=== PATIENT | male | born 1995 | race African-American/Black ===

== ENCOUNTER 2017-06-23 11:28 | Emergency (ER) | payer MEDICAID ==
[2017-06-23 11:42] VITALS: BP 101/56
[2017-06-23] MEDS ORDERED: IBUPROFEN 800 MG TABLET PO ONE (12:59)
--- NOTE | 2017-06-23 13:04 | RADIOLOGY REPORT (SQ) ---
EXAM DESCRIPTION: ANKLE RIGHT COMPLETE COMPLETED DATE/TIME: 06/23/2017 12:55 pm REASON FOR STUDY: pain and injury COMPARISON: None. NUMBER OF VIEWS: Three views. TECHNIQUE: AP, lateral, and oblique radiographic images acquired of the right ankle. LIMITATIONS: None. FINDINGS: MINERALIZATION: Normal. BONES: No acute fracture or dislocation. No worrisome bone lesions. JOINTS: No effusions. SOFT TISSUES: No soft tissue swelling. No foreign body. OTHER: No other significant finding. IMPRESSION: NEGATIVE STUDY OF THE RIGHT ANKLE. NO RADIOGRAPHIC EVIDENCE OF ACUTE INJURY. TECHNICAL DOCUMENTATION: JOB ID: [id number] [employer]- All Rights Reserved Reading location - IP/workstation name: [email or web address]
--- NOTE | 2017-06-23 13:05 | ER Document Report ---
ED Extremity Problem, Lower - General Chief Complaint: Ankle Injury Stated Complaint: ANKLE PAIN Time Seen by Provider: 06/23/17 12:34 Mode of Arrival: Ambulatory Information source: Patient Notes: 21-year-old male presents to ED for complaint of pain to his right ankle. He states he was playing basketball yesterday and came down wrong on his ankle causing him to fall. There is slight swelling to the lateral aspect of the right ankle. He has full range of motion to the ankle. TRAVEL OUTSIDE OF THE [place] IN LAST 30 DAYS: No - HPI Patient complains to provider of: Injury, Pain, Swelling Location: Ankle - Right Occurred: Yesterday Where: Outdoors, Sports Onset/Duration: Gradual Quality of pain: Achy, Sharp Severity: Moderate Pain Level: 3 Context: Fell, Twisted, Wearing shoes Recent injury: Possibly Associated symptoms: Painful ambulation Exacerbated by: Hanging down, Movement, Walking Relieved by: Nothing - Related Data Allergies/Adverse Reactions: No Known Allergies Allergy (Verified 06/23/17 11:32) Past Medical History - General Information source: Patient - Social History Smoking Status: Never Smoker Cigarette use (# per day): No Chew tobacco use (# tins/day): No Smoking Education Provided: No Frequency of alcohol use: None Drug Abuse: None Lives with: Family Family History: Reviewed & Not Pertinent. denies: Arthritis, CAD, COPD, CVA, DM , Hyperlipidemia, Hypertension, Malignancy, Thyroid Disfunction Patient has suicidal ideation: No Patient has homicidal ideation: No - Past Medical History Cardiac Medical History: Reports: None Pulmonary Medical History: Reports: None EENT Medical History: Reports: None Neurological Medical History: Reports: None Endocrine Medical History: Reports: None Renal/ Medical History: Reports: None Malignancy Medical History: Reports None GI Medical History: Reports: None Musculoskeltal Medical History: Reports Hx Musculoskeletal Trauma Skin Medical History: Reports None Psychiatric Medical History: Reports: None Traumatic Medical History: Reports: Hx Fractures - Hand Infectious Medical History: Reports: None Surgical Hx: Negative Past Surgical History: Reports: None - Immunizations Immunizations up to date: Yes Hx Diphtheria, Pertussis, Tetanus Vaccination: Yes Review of Systems - Review of Systems Constitutional: No symptoms reported EENT: No symptoms reported Cardiovascular: No symptoms reported Respiratory: No symptoms reported Gastrointestinal: No symptoms reported Genitourinary: No symptoms reported Male Genitourinary: No symptoms reported Musculoskeletal: Ankle swelling Skin: No symptoms reported Hematologic/Lymphatic: No symptoms reported Neurological/Psychological: No symptoms reported -: Yes All other systems reviewed and negative Physical Exam - Vital signs Vitals: Temp Pulse Resp BP Pulse Ox 98.2 F 57 L 14 101/56 L 98 06/23/17 11:40 06/23/17 11:40 06/23/17 11:40 06/23/17 11:40 06/23/17 11:40 Interpretation: Normal - General General appearance: Appears well, Alert - HEENT Head: Normocephalic, Atraumatic Eyes: Normal Pupils: PERRL - Respiratory Respiratory status: No respiratory distress Chest status: Nontender Breath sounds: Normal Chest palpation: Normal - Cardiovascular Rhythm: Regular Heart sounds: Normal auscultation Murmur: No - Abdominal Inspection: Normal Distension: No distension Bowel sounds: Normal Tenderness: Nontender Organomegaly: No organomegaly - Back Back: Normal, Nontender - Extremities General upper extremity: Normal inspection, Nontender, Normal color, Normal ROM , Normal temperature General lower extremity: Normal color, Normal temperature, Normal weight bearing. No: Cheyenne's sign Ankle: Tender, Ecchymosis, Edema. No: Abrasion, Deformity, Instability, Laceration, Limited ROM, Positive Mishra's test, Unable to bear weight Foot: Tender - Neurological Neuro grossly intact: Yes Cognition: Normal Orientation: AAOx4 [place] Coma Scale Eye Opening: Spontaneous [place] Coma Scale Verbal: Oriented Nael Coma Scale Motor: Obeys Commands Nael Coma Scale Total: 15 Speech: Normal Motor strength normal: LUE, RUE, LLE, RLE Sensory: Normal - Psychological Associated symptoms: Normal affect, Normal mood - Skin Skin Temperature: Warm Skin Moisture: Dry Skin Color: Normal Course - Vital Signs Vital signs: Temp Pulse Resp BP Pulse Ox 98.2 F 57 L 14 101/56 L 98 06/23/17 11:40 06/23/17 11:40 06/23/17 11:40 06/23/17 11:40 06/23/17 11:40 - Diagnostic Test Radiology reviewed: Image reviewed, Reports reviewed Procedures - Immobilization Right Ankle Time completed: 13:20 Pre-Proc Neuro Vasc Exam: Normal Immobilizer type: Leandro wrap, Ankle stirrup, Crutches Performed by: PCT Post-Proc Neuro Vasc Exam: Normal Alignment checked and good: Yes Discharge - Discharge Clinical Impression: Right ankle sprain Qualifiers: Encounter type: initial encounter Involved ligament of ankle: unspecified ligament Qualified Code(s): S93.401A - Sprain of unspecified ligament of right ankle, initial encounter Condition: Stable Disposition: HOME, SELF-CARE Additional Instructions: SPRAINED ANKLE: Your sprained ankle results from stretching or tearing of the ligaments which support the ankle. This usually results from twisting the foot inward and under. The ligaments will require time and protection in order to heal properly. Many ankle sprains are quite disabling, and should be taken seriously. The usual treatment for an ankle sprain is cold packs; protection with tape , splints, or wraps; elevation; and staying off the ankle for at least a day. As the ankle improves, you can walk IF it's not painful to bear weight. Sports are best postponed until healing is complete. More serious sprains usually require strengthening exercises after early healing. Your physician has assessed the seriousness of the ligament injury to your ankle. However, the treatment may change, depending on how your ankle progresses. If further exams were recommended, it is important that you follow through. Call the doctor if your foot becomes numb, painful, or severely swollen. LEANDRO WRAP: A compression dressing (leandro wrap) has been placed. This helps hold the area still. It limits swelling and internal bleeding. The wrap should be comfortably snug -- not tight. You should feel a sense of pressure, but not severe pain under the wrap. Unless the physician tells you otherwise, you can adjust the wrap for comfort. If the wrap causes symptoms suggesting it's too tight -- uncomfortable pressure, swelling or discoloration beyond the wrap, numbness, or severe pain - - you must loosen the wrap. If these symptoms don't resolve promptly, return for re-evaluation. ANKLE STIRRUP SPLINT: You are to use an ankle brace called a stirrup splint. This type of brace allows you to place greater stresses on the ankle without risk of re-injury, and is often used for more severe ankle injuries such as avulsion fractures and ligament ruptures. The splint can be worn over a sock or tape. For proper support, wear the splint with a shoe over it. It's important that the splint fit properly. Adjust the heel tension, if needed. If your splint has air bladders, peel back the bottom of each air bladder, then move the Velcro attachment of the heel strap up or down. Air bladder pressure can be adjusted by pulling up the valve at the top, threading the air tube down into the main bladder, then blowing air into the bladder or squeezing it out. The two sides of the stirrup can be moved forward or back on your ankle by changing the attachment of the main straps. If you are unable to use the ankle comfortably in the splint, return for re -evaluation. USE OF CRUTCHES: The doctor has recommended that you not bear weight at this time. You will need to use crutches. Adjust the crutches so the tops come to about two inches under the armpit while you are standing upright. Use your hands -- not your armpits -- to support your weight. To get into a chair, support yourself with one crutch on the injured side. Hold the chair with the other hand, then lower yourself while putting all your weight on the good leg. Going up stairs is `good leg up, step up, then bring up crutches and bad leg.' Down stairs is `bad leg and crutches down, then bring good leg down.' If you develop numbness or swelling in an arm or hand, you are using the crutches incorrectly. Return if you are having any problems with the crutches. ICE & ELEVATION: Apply ice packs frequently against the painful area. Many different schedules are recommended, such as "20 minutes on, 20 minutes off" or "one hour ice, two hours rest." If you need to work, you may need to go longer between ice treatments. You should plan to have the area ice packed AT LEAST one- fourth of the time. The ice should be applied over the wrap, tape, or splint, or over a layer of cloth -- not directly against the skin. Some ice bags have a built-in cloth and can be put directly on the skin. Your injured part should be elevated as much as possible over the next 48 hours. Try to keep the injury above the level of the heart. Avoid use of the injured area. Elevation and rest will decrease the swelling. USE OF GOFB-IMA-NEYKFTS IBUPROFEN: Ibuprofen (Advil, Nuprin, Medipren, Motrin IB) is a medication for fever and pain control. In addition, it has anti- inflammatory effects which may be beneficial, especially in the treatment of injuries. It's best to take ibuprofen with food. Persons with ulcer disease or allergy to aspirin should notify their physician of this before taking ibuprofen. Ibuprofen can be given every four to six hours, for a total of four doses daily. Age Pain or fever dose Antiinflammatory dose 6-8 yr 200 mg (1 tab) 200 mg (1 tab) 9-11 yr 200 mg (1 tab) 200-400 mg (1-2 tab) 11-14 yr 200-400 mg (1-2 tab) 400 mg (2 tab) 15-adult 400 mg (2 tab) 600 mg (3 tab) FOLLOW-UP CARE: If you have been referred to a physician for follow-up care, call the physician s office for an appointment as you were instructed or within the next two days. If you experience worsening or a significant change in your symptoms, notify the physician immediately or return to the Emergency Department at any time for re-evaluation. Prescriptions: Ibuprofen 800 mg PO Q8HP PRN #14 tablet PRN Reason: Forms: Return to Work Referrals: SUPA WELCH MD [ACTIVE STAFF] - Follow up as needed
== END 2017-06-23 13:29 | disposition home or self-care (01) ==
LOC: ER 11:28
DX: S93.401A Sprain of unspecified ligament of right ankle, initial encounter (principal); M25.571 Pain in right ankle and joints of right foot; W19.XXXA Unspecified fall, initial encounter; Y93.67 Activity, basketball
CPT/HCPCS: 99283; 73610; L1902; J3490

== ENCOUNTER 2019-01-03 02:22 | Emergency (ER) | payer SELFPAY ==
[2019-01-03 02:27] VITALS: BP 137/83
--- NOTE | 2019-01-03 03:56 | RADIOLOGY REPORT (SQ) ---
Left shoulder three view on 01/03/2019 at 3:23 AM CLINICAL INDICATION: Left shoulder pain COMPARISON: None FINDINGS: The AC joint is well aligned. The glenohumeral joint is well located. There are no fractures. No bony abnormality is noted. IMPRESSION: No acute abnormality.
[2019-01-03] MEDS ORDERED: KETOROLAC TROMETHAMINE 60 MG/2 ML SDV IM ONE (04:35)
--- NOTE | 2019-01-03 04:44 | ER Document Report ---
HPI - HPI Time Seen by Provider: 01/03/19 04:27 Pain Level: 4 Context: Patient is a 23-year-old male that comes to the emergency department for chief complaint of left shoulder injury. He states he was messing around with his girl, he states he was swinging his arms and he suddenly felt a sharp pain in his left shoulder. He states he has trouble lifting his arm over his head now. He denies fall injury or impact injury. He denies history of the same. He denies numbness in the hand, pain in the neck, or any other complaints. He denies any daily medications or past medical history. He did not take anything prior to coming to the emergency department. Family at bedside. Past Medical History - General Information source: Patient, Relative - Social History Smoking Status: Never Smoker Frequency of alcohol use: None Drug Abuse: None Lives with: Family Family History: Reviewed & Not Pertinent. denies: Arthritis, CAD, COPD, CVA, DM, Hyperlipidemia, Hypertension, Malignancy, Thyroid Disfunction Patient has suicidal ideation: No Patient has homicidal ideation: No Renal/ Medical History: Denies: Hx Peritoneal Dialysis Musculoskeletal Medical History: Reports Hx Musculoskeletal Trauma Traumatic Medical History: Reports: Hx Fractures - Hand - Immunizations Immunizations up to date: Yes Hx Diphtheria, Pertussis, Tetanus Vaccination: Yes Vertical Provider Document - INFECTION CONTROL TRAVEL OUTSIDE OF THE [place] IN LAST 30 DAYS: No - HEENT HEENT: Atraumatic, Normal ENT Exam, Normocephalic - NECK Neck: Normal Inspection - RESPIRATORY Respiratory: Breath Sounds Normal, No Respiratory Distress - CARDIOVASCULAR Cardiovascular: Regular Rate, Regular Rhythm - GI/ABDOMEN Gastrointestinal: Abdomen Soft, Abdomen Non-Tender - BACK Back: Normal Inspection - MUSCULOSKELETAL/EXTREMETIES Musculoskeletal/Extremeties: MAEW, FROM, Tender - Tender over the left supraspinatus muscle with pain and trouble lifting hand/arm over the head. 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 Normal capillary refill and sensation distally. Normal extremities otherwise. - NEURO Level of Consciousness: Awake, Alert, Appropriate Motor/Sensory: No Motor Deficit, No Sensory Deficit - DERM Integumentary: Warm, Dry, No Rash Course - Re-evaluation Re-evalutation: I did review x-ray and this is negative. No trauma. No neurovascular deficit. Patient has supraspinatus tenderness and pain with performing range of motion for the rotator cuff. Appears to be rotator cuff injury only. I did offer a sling, anti-inflammatories, discussed orthopedic follow-up, discussed details and return precautions. Patient and family state understanding and agreement. Sling had been ordered along with Toradol but nurse came and told me that patient had left after discussion with me without the sling or the Toradol. - Vital Signs Vital signs: Temp Pulse Resp BP Pulse Ox 97.4 F 80 16 137/83 H 98 01/03/19 02:26 01/03/19 02:26 01/03/19 02:26 01/03/19 02:26 01/03/19 02:26 Discharge - Discharge Clinical Impression: Injury of left shoulder Qualifiers: Encounter type: initial encounter Qualified Code(s): S49.92XA - Unspecified injury of left shoulder and upper arm, initial encounter Condition: Stable Disposition: HOME, SELF-CARE Additional Instructions: Your x-ray is negative. Your evaluation is most consistent with injury of the rotator cuff with probable partial tear. I recommend wearing the sling but remember to take the arm out of the sling frequently and perform range of motion as you were shown to avoid freezing of the shoulder and promote recovery. Take the anti-inflammatory as prescribed, ice the area 3-4 times a day, if symptoms continue follow-up with the orthopedic referral listed. Return if you worsen including severe swelling or increased pain of the shoulder. Prescriptions: Naproxen 500 mg PO BID PRN #20 tablet PRN Reason: Referrals: CHRISTIANO HAMMER MD [ACTIVE STAFF] - Follow up in 1 week
== END 2019-01-03 05:08 | disposition home or self-care (01) ==
LOC: ER 02:22
DX: S49.92XA Unspecified injury of left shoulder and upper arm, initial encounter (principal); X58.XXXA Exposure to other specified factors, initial encounter; M25.512 Pain in left shoulder; Z53.20 Procedure and treatment not carried out because of patient's decision for unspecified reasons

== ENCOUNTER 2019-02-18 12:00 | Emergency (ER) | payer SELFPAY ==
--- NOTE | 2019-02-18 12:57 | ER Document Report ---
ED Medical Screen (RME) - General Chief Complaint: Facial Injury Stated Complaint: FALL/LEFT THUMB INJURY, SWELLING Time Seen by Provider: 02/18/19 12:54 Mode of Arrival: Ambulatory Information source: Patient Notes: 23-year-old male presented ED for pain to his left hand thumb since 1145. He states he fell down the stairs before coming to the emergency room. His left thumb and hand are very swollen. He states he cannot move the thumb at all. Patient is alert oriented respirations regular and unlabored speaking in full sentences walks with even steady gait. Patient states he does not smoke drink or use illicit drugs. Patient states he is right-handed I have greeted and performed a rapid initial assessment of this patient. A comprehensive ED assessment and evaluation of the patient, analysis of test results and completion of medical decision making process will be conducted by an additional ED providers. TRAVEL OUTSIDE OF THE [place] IN LAST 30 DAYS: No - Related Data Allergies/Adverse Reactions: No Known Allergies Allergy (Verified 06/23/17 11:32) Past Medical History Renal/ Medical History: Denies: Hx Peritoneal Dialysis Musculoskeltal Medical History: Reports Hx Musculoskeletal Trauma Traumatic Medical History: Reports: Hx Fractures - Hand - Immunizations Immunizations up to date: Yes Hx Diphtheria, Pertussis, Tetanus Vaccination: Yes Physical Exam - Vital signs Vitals: Temp Pulse BP Pulse Ox 98.4 F 85 122/79 97 02/18/19 12:14 02/18/19 12:14 02/18/19 12:14 02/18/19 12:14 Course - Vital Signs Vital signs: Temp Pulse Resp BP Pulse Ox 98.4 F 85 122/79 97 02/18/19 12:14 02/18/19 12:14 02/18/19 12:14 02/18/19 12:14
[2019-02-18] MEDS ORDERED: HYDROCODONE/ACETAMINOPHEN 5-325 MG TABLET PO ONE (12:58)
--- NOTE | 2019-02-18 13:29 | RADIOLOGY REPORT (SQ) ---
EXAM DESCRIPTION: HAND LEFT 3 VIEWS COMPLETED DATE/TIME: 02/18/2019 1:13 pm REASON FOR STUDY: pain fall injury COMPARISON: None. EXAM PARAMETERS: NUMBER OF VIEWS: Three views. TECHNIQUE: AP, lateral and oblique radiographic images acquired of the left hand. LIMITATIONS: None. FINDINGS: MINERALIZATION: Normal. BONES: No acute fracture or dislocation. No worrisome bone lesions. JOINTS: No effusions. SOFT TISSUES: No soft tissue swelling. No foreign body. OTHER: No other significant finding. IMPRESSION: NEGATIVE STUDY OF THE LEFT HAND. NO RADIOGRAPHIC EVIDENCE OF ACUTE INJURY. TECHNICAL DOCUMENTATION: JOB ID: [id number]- All Rights Reserved Reading location - IP/workstation name: [email or web address]
--- NOTE | 2019-02-18 14:28 | ER Document Report ---
HPI - HPI Time Seen by Provider: 02/18/19 12:54 Pain Level: 3 Notes: Patient is a 23-year-old male who presents complaining of left thumb pain status post injury prior to arrival. Patient states that he tripped on cement and fell on his hand. Patient states that he has noticed swelling to the thumb area since then. He has had pain with movement of his thumb. He did not break the skin. Denies drug allergies. No other concerns or complaints. Denies any headache, fever, head injury, neck pain, changes in vision/speech/mentation/hearing, URI, sore throat, chest pain, palpitations, syncope, cough, shortness of breath, wheeze, dyspnea, abdominal pain, nausea/v omiting/diarrhea, urinary retention, dysuria, hematuria, loss of control of bowel or bladder, numbness/tingling, saddle anesthesia, muscle paralysis, or rash. - ROS Systems Reviewed and Negative: Yes All other systems reviewed and negative - REPRODUCTIVE Reproductive: DENIES: : Past Medical History - General Information source: Patient - Social History Smoking Status: Never Smoker Chew tobacco use (# tins/day): No Frequency of alcohol use: None Drug Abuse: None Family History: Reviewed & Not Pertinent. denies: Arthritis, CAD, COPD, CVA, DM, Hyperlipidemia, Hypertension, Malignancy, Thyroid Disfunction Patient has suicidal ideation: No Patient has homicidal ideation: No Renal/ Medical History: Denies: Hx Peritoneal Dialysis Musculoskeletal Medical History: Reports Hx Musculoskeletal Trauma Traumatic Medical History: Reports: Hx Fractures - Hand - Immunizations Immunizations up to date: Yes Hx Diphtheria, Pertussis, Tetanus Vaccination: Yes Vertical Provider Document - CONSTITUTIONAL Agree With Documented VS: Yes Notes: PHYSICAL EXAMINATION: GENERAL: Well-appearing, well-nourished and in no acute distress. HEAD: Atraumatic, normocephalic. NECK: Normal range of motion, supple without lymphadenopathy. No midline tenderness. LUNGS: Breath sounds clear to auscultation bilaterally and equal. No wheezes rales or rhonchi. HEART: Regular rate and rhythm without murmurs, rubs, gallops. Musculoskeletal: Lt hand/wrist: + mild swelling noted left lateral hand. No erythema, warmth, ecchymosis noted. N/V intact distal. FROM to passive/active at the wrist. FROM to the hand aside from LROM to the left thumb through ROM. 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 + scaphoid tenderness. + tenderness left 1st metacarpal area and MCP joint. No other bony tenderness. 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 Extremities: No cyanosis, clubbing, or edema b/l. Peripheral pulses 2+. Capillary refill less than 3 seconds. NEUROLOGICAL: Normal speech, normal gait. Normal sensory, motor exams otherwise unremarkable PSYCH: Normal mood, normal affect. SKIN: see above. No rash - INFECTION CONTROL TRAVEL OUTSIDE OF THE [place] IN LAST 30 DAYS: No Course - Re-evaluation Re-evalutation: 02/18/19 14:31 Patient is an afebrile, well-hydrated, 55-year-old female who presents to the ED with left thumb/hand pain. Vitals are acceptable without any significant tachycardia, tachypnea, or hypoxia. PE is otherwise unremarkable for any neurovascular compromise, obvious tendon/ligament rupture, obvious fracture/dislocation, septic joint. X-ray was unremarkable for any acute pathology. Reviewed with patient that we cannot adequately r/o an occult fracture or scaphoid fracture. Thumb spica placed. Patient is nontoxic- appearing. No other labs or imaging warranted at this time based on H&P. Conservative measures otherwise for symptoms. Recheck with your PCM in 3-5 days. Schedule consult with orthopedics. Return to the ED with any worsening/concerning symptoms otherwise as reviewed in discharge. Patient is in agreement. - Vital Signs Vital signs: Temp Pulse Resp BP Pulse Ox 98.4 F 85 122/79 97 02/18/19 12:14 02/18/19 12:14 02/18/19 12:14 02/18/19 12:14 Procedures - Immobilization Left Thumb Pre-Proc Neuro Vasc Exam: Normal Immobilizer type: Thumb spica Performed by: PCT Post-Proc Neuro Vasc Exam: Unchanged from pre-exam Discharge - Discharge Clinical Impression: Pain of left thumb Condition: Stable Disposition: HOME, SELF-CARE Additional Instructions: Rest, Ice, Compression, Elevation Use splint as directed Tylenol/ibuprofen as needed F/u with your PCP in 3-5 days for a recheck Call orthopedics tomorrow to schedule an appointment for further evaluation and management Return to the ED with any worsening symptoms and/or development of fever, headache, chest pain, palpitations, syncope, shortness of breath, trouble breathing, abdominal pain, n/v/d, muscle weakness/paralysis, numbness/tingling, swelling, redness, or other worsening symptoms that are concerning to you. Prescriptions: Meloxicam [Mobic 7.5 Mg Tablet] 7.5 mg PO BID PRN #30 tablet PRN Reason: Referrals: SORAYA ROY MD [NO LOCAL MD] - Follow up as needed BLAIR PUENTE DO [ACTIVE STAFF] - Follow up as needed
[2019-02-18 14:47] VITALS: BP 138/69
== END 2019-02-18 14:48 | disposition home or self-care (01) ==
LOC: ER 12:00
DX: M79.645 Pain in left finger(s) (principal); M79.89 Other specified soft tissue disorders; W01.0XXA Fall on same level from slipping, tripping and stumbling without subsequent striking against object, initial encounter
CPT/HCPCS: 99283

== ENCOUNTER 2019-03-17 16:16 | Emergency (ER) | payer SELFPAY ==
--- NOTE | 2019-03-17 16:48 | ER Document Report ---
HPI - HPI Time Seen by Provider: 03/17/19 16:40 Context: Patient is a 23-year-old male who presents to the emergency department with left thumb pain. He was seen on for the same issue. He states that at that time he was carrying groceries and ended up losing his balance and landed on his hand. The provider at that time had noticed that he may be had a dislocated finger. He ended up contacting the patient via Facebook and told him to come be evaluated in the emergency department. Patient states that he continues to have pain to the area. He has not followed up with orthopedics due to his insurance not being 100% in affect. Denies any past medical history. - CONSTITUTIONAL Constitutional: DENIES: Fever, Chills - EENT EENT: DENIES: Sore Throat - NEURO Neurology: DENIES: Headache - CARDIOVASCULAR Cardiovascular: DENIES: Chest pain - RESPIRATORY Respiratory: DENIES: Trouble Breathing, Coughing - REPRODUCTIVE Reproductive: DENIES: : - MUSCULOSKELETAL Musculoskeletal: REPORTS: Extremity pain - Left proximal thumb, Swelling - Left proximal thumb - DERM Skin Color: Normal Skin Problems: None Past Medical History - Social History Smoking Status: Never Smoker Family History: Reviewed & Not Pertinent. denies: Arthritis, CAD, COPD, CVA, DM, Hyperlipidemia, Hypertension, Malignancy, Thyroid Disfunction Renal/ Medical History: Denies: Hx Peritoneal Dialysis Musculoskeletal Medical History: Reports Hx Musculoskeletal Trauma Traumatic Medical History: Reports: Hx Fractures - Hand - Immunizations Immunizations up to date: Yes Hx Diphtheria, Pertussis, Tetanus Vaccination: Yes Vertical Provider Document - CONSTITUTIONAL Agree With Documented VS: Yes Exam Limitations: No Limitations General Appearance: No Apparent Distress - INFECTION CONTROL TRAVEL OUTSIDE OF THE [place] IN LAST 30 DAYS: No - HEENT HEENT: Atraumatic, Normocephalic, PERRLA - NECK Neck: Normal Inspection - RESPIRATORY Respiratory: No Respiratory Distress - CARDIOVASCULAR Pulses: Normal: Radial - MUSCULOSKELETAL/EXTREMETIES Musculoskeletal/Extremeties: Tender - Left proximal thumb, Edema, Eccymosis. negative: FROM - Decreased intra-motion to the left proximal thumb - NEURO Level of Consciousness: Awake, Alert, Appropriate Motor/Sensory: No Motor Deficit, No Sensory Deficit - DERM Integumentary: Warm, Dry, No Rash Course - Re-evaluation Re-evalutation: 03/17/19 17:29 Patient's x-ray does not reveal a fracture or dislocation. The radiologist is recommending orthopedic referral and MRI if needed in the future. Patient will be placed in thumb spica. I very strongly suggested the patient visit orthopedics. He is in agreement with this plan. Follow-up precautions were given. Verbal discharge instructions were given to the patient. They verbalized understanding. They are stable for discharge. - Vital Signs Vital signs: Temp Pulse Resp BP Pulse Ox 98.4 F 68 20 116/66 100 03/17/19 16:20 03/17/19 16:20 03/17/19 16:20 03/17/19 16:20 03/17/19 16:20 Procedures - Immobilization Left Wrist Pre-Proc Neuro Vasc Exam: Normal Immobilizer type: Thumb spica Performed by: PCT Post-Proc Neuro Vasc Exam: Normal, Unchanged from pre-exam Alignment checked and good: Yes Discharge - Discharge Clinical Impression: Pain of left thumb, Swelling of left thumb Condition: Stable Disposition: HOME, SELF-CARE Additional Instructions: You were seen today in the emergency department for left thumb pain. Your x-ray does not show any dislocation. You need to follow-up with orthopedics tomorrow. Call them and make an appointment. Make sure your insurance is in place before you see them. You are being placed in a splint. Please keep your splint on until you are able to see orthopedics. If you need to take shower, you can take the splint off, but immediately put the splint back on. Take Tylenol 1000 mg and ibuprofen 600 mg every 6 hours for your pain and swelling. Referrals: OLIVIA HENDRICKSON MD [ACTIVE PROVISIONAL STAFF] - Follow up tomorrow BELLA ARRIAZA JR, DO [ACTIVE PROVISIONAL STAFF] - Follow up tomorrow CHRISTIANO HAMMER MD [ACTIVE STAFF] - Follow up tomorrow
--- NOTE | 2019-03-17 17:15 | RADIOLOGY REPORT (SQ) ---
EXAM DESCRIPTION: HAND LEFT 3 VIEWS COMPLETED DATE/TIME: 03/17/2019 4:52 pm REASON FOR STUDY: eval dislocation? injury 1 month ago COMPARISON: 02/18/2019 EXAM PARAMETERS: NUMBER OF VIEWS: Three views. TECHNIQUE: AP, lateral and oblique radiographic images acquired of the left hand. LIMITATIONS: None. FINDINGS: MINERALIZATION: Normal. BONES: No acute fracture or dislocation. No worrisome bone lesions. JOINTS: No effusions. SOFT TISSUES: No soft tissue swelling. No foreign body. OTHER: No other significant finding. IMPRESSION: No fracture or dislocation of the left hand. Consider orthopedic referral and MRI to ev aluate for ligamentous integrity for persistent thumb pain in setting of prior trauma. TECHNICAL DOCUMENTATION: JOB ID: [id number] [employer]- All Rights Reserved Reading location - IP/workstation name: [email or web address]
[2019-03-17 17:44] VITALS: BP 122/68
== END 2019-03-17 17:50 | disposition home or self-care (01) ==
LOC: ER 16:16
DX: S60.012A Contusion of left thumb without damage to nail, initial encounter (principal); M79.645 Pain in left finger(s); M79.89 Other specified soft tissue disorders; W19.XXXA Unspecified fall, initial encounter
CPT/HCPCS: 99283